=== PATIENT | female | born 1965 | race Caucasian/White ===

== ENCOUNTER 2021-12-09 13:00 | Outpatient (RCR) | payer MEDICAID, SELFPAY ==
--- NOTE | 2021-12-10 07:42 | HP.OTEVAL ---
Patient's Visit Information CARMEN FREEMAN is a 56 year old F, referred to Occupational Therapy by JAYME LANE, with a diagnosis of left UE lymphedema. Date of Evaluation: 12/09/21 Occupational Therapist: Mary Hussein, JANETTER/Nunu, CHT - Subjective This 56 year old female was seen for OT eval with dx of left UE lymphedema- pt states since 2020. pt states she spent 19 days in hospital and 6 weeks in [place]. pt states she could tell while sedated her arm was painful but because she was sedated she couldn't move her arm- pt states when she became more alert at the hospital she found she could not use her left are. pt states she has numbness mid biceps down to her fingers-. pt states nerve conduction test indicated nerve regrowth in deltoid muscle. pt is left handed. pt had swelling and in her left arm when she woke up and has tried compression sleeve glove to elbow. but swelling continues to build in her Upper deltoid/tricep and biceps. pt is using a tubigrip on her upper arm. pt has her sister that can help her with her ADLs as she is unbale to use her UE due to Brachial plexus injury or Parsonage-taylor syndrome - Lymphedema (Circumferential Measure) MCP: right 19cm left 21cm Wrist: right 17cm left 18cm Lower forearm: right 21cm left 32cm Largest forearm: right 31cm left 34cm Elbow: right 31cm left 31cm Largest humerus: rigth 36cn left 49cm Axcillary: right 49cm left 52cm Upper Exremity Comments: pt demo no functional left UE ROM due to brachial plexus injury or [place]-Taylor syndrome - Quick DASH-Disab of Arm,Shoulder& Hand Quick DASH Score: 68.1800 - Goals Demonstrate a 20% reduction in edema by d/c: Yes Demonstrate adequate knowledge of self-bangaging by 1st week: Yes Demonstrate adequate knowledge of self-massage by 2nd week: Yes Demonstrate adequate knowledge skin care/prec by 2nd week: Yes Demonstrate adequate knowledge therapeutic exercises by d/c: Yes Select approp compression garment w/donning/care/wear by d/c: Yes Voice need to replace compression garment every 4-6mo by dc: Yes - Rehabilitation General Assessment: Pt demo with left UE stage II lymphedema. pt would benefit from skilled OT services 3-4 visits to ed pt on dx, life long mtg treatment options, compression devices/wrapping, skin care and lymph stim exercise - and ed. pt on self manual lymph massage alan. Today therapist ed. pt on need of consistent use of compression devices, lymph stim exercise and skin care- pts limited mobility does decrease pts ability to actively to stimulate a muscle contraction to engage circulation- pt would benefit from use of a vasopneumatic pump for home use to mtg her lymphedema. pt demo understanding of her ex and agree to poc. Rehabilitation Potential: Fair - Anticipated Interventions Education re assistive Equipment, Education re Diagnosis, Manual Lymph Drainage, Education re Life-long lymphedema Management, Education re Self-Bandaging Techniques, Education re Skin Care and Precautions, Education re Self Massage Techniques, Education re Correct Donning Tech,Care&Wearing Sched Comp Garments, Caregiver Training, Home Program - Visit Plan General Plan: pt ed. on need of compression devices and to consistently wear it- due to the fact the sleeve only fits wrist to elbow she is using tubigrip for deltoid region - therapist ed. pt on need of compression glove fingers included, and sleeve or compression alternative for her entire arm. pt demo understanding- Pt states insurance does not cover her garments or devices so cost will be challenging. TEXT: Thank you for the opportunity to evaluate your patient. For Medicare and Medicare HMO plans, please review the plan of care and approve it. It will need to be FAXED BACK to us at [phone] for Medicare purposes. Please let me know if there are questions or concerns regarding this plan of care. Physician Signature: Date:
--- NOTE | 2022-06-02 15:20 | HP.OT.NRP ---
CARMEN FREEMAN was seen in my office for initial evaluation on 12/09/21. The following Plan of Care was established for this patient: Anticipated Interventions: Education re assistive Equipment, Education re Diagnosis, Manual Lymph Drainage, Education re Life-long lymphedema Management, Education re Self-Bandaging Techniques, Education re Skin Care and Precautions, Education re Self Massage Techniques, Education re Correct Donning Tech,Care&Wearing Sched Comp Garments, Caregiver Training, Home Program This patient was last seen in our office 12/09/21. Pertinent comments regarding their Occupational therapy will appear below: pt seen for OT eval only- due to time lapse in services pt d/c at this time. At this point I will be discontinuing this patient from occupational therapy. I would be happy to see this patient again in the future if found appropriate by the physician. Thank you! Mary Hussein, OTR/L, CHT
== END 2021-12-09 19:00 | disposition home or self-care (01) ==
LOC: OT 13:00
PROVIDERS: PCP Internal Medicine
DX: M79.89 Other specified soft tissue disorders (principal)
CPT/HCPCS: 97166; 97530